=== PATIENT | female | born 1950 | race Caucasian/White ===

== ENCOUNTER → 2018-01-25 | Outpatient (CLI) | payer OTHER | END | disposition home or self-care (01) | LOC: ECHO 13:15 | DX: I08.3 Combined rheumatic disorders of mitral, aortic and tricuspid valves (principal) | CPT/HCPCS: 93306 ==

== ENCOUNTER → 2018-11-30 | Outpatient (CLI) | payer OTHER ==
--- NOTE | 2018-11-30 15:53 | CARD ---
MR#: [id number] Date of Study: 11/30/2018 Ordering Physician: THOMAS TAYLOR, Referring Physician: THOMAS TAYLOR, Tech: Rosalia Tompkins JAMIL APPROVED REPORT EXAM: Two-dimensional and M-mode echocardiogram with Doppler and color Doppler. Other Information Quality : Good INDICATION Aortic Valve Disease 2D DIMENSIONS Left Atrium(2D)3.6 (1.6-4.0cm)IVSd1.0 (0.7-1.1cm) Aortic Root(2D)2.4 (2.0-3.7cm)LVDd4.7 (3.9-5.9cm) LVOT Diameter2.0 (1.8-2.4cm)PWd0.9 (0.7-1.1cm) LVDs3.6 (2.5-4.0cm)FS (%) 24.6 % SV50.3 mlLVEF(%)55.0 (>50%) M-Mode DIMENSIONS Aortic Cusp Exc0.87 (1.5-2.0cm) Aortic Valve AoV Peak Morris.429.1cm/sAoV KKP852.2cm AO Peak GR.78.0mmHgLVOT Peak Morris.138.4cm/s LVOT VTI 33.07cmAO Mean GR.49mmHg KEIRA (VMAX)1.37wr7HIK (VTI)0.99cm2 Mitral Valve MV E Psiyucrh910.0cm/sMV DECEL STYU260cd MV A Fxeczmly269.0cm/sMV CMN92nu E/A Ratio1.3MVA (PHT)4.01cm2 TDI E/Lateral E'18.1E/Medial E'19.9 Tricuspid Valve TR P. Yjckvjxq836rh/sRAP ENTWDYUY4feNc TR Peak Gr.52hrTfOABH66poHk Pulmonary Vein S1 Rljxjjyp35.2cm/sD2 Caphnyri79.7cm/s LEFT VENTRICLE The left ventricle is normal size. There is normal left ventricular wall thickness. The left ventricu lar systolic function is normal and the ejection fraction is within normal range. The Ejection Fracti on is 55-60%. There is normal LV segmental wall motion. Transmitral Doppler flow pattern is Grade I-a bnormal relaxation pattern. RIGHT VENTRICLE The right ventricle is normal size. The right ventricular systolic function is normal. ATRIA The left atrium size is normal. The right atrium size is normal. The interatrial septum is intact wit h no evidence for an atrial septal defect or patent foramen ovale as noted on 2-D or Doppler imaging. AORTIC VALVE The aortic valve is calcified and displays decreased opening. Doppler and Color Flow revealed trace a ortic regurgitation. Calculated aortic valve area is 0.99 cm2 with maximum pressure gradient of 78 mm Hg and mean pressure gradient of 50 mmHg. Doppler and color-flow analysis revealed severe aortic sten osis. MITRAL VALVE The mitral valve is calcified but opens well. There is no evidence of mitral valve prolapse. There is no mitral valve stenosis. Doppler and Color-flow revealed trace to mild mitral regurgitation. TRICUSPID VALVE The tricuspid valve is normal in structure and function. Doppler and Color Flow revealed trace tricus pid regurgitation. There is moderate pulmonary hypertension. The PA pressure was estimated at 43 mmHg . There is no tricuspid valve stenosis. PULMONIC VALVE The pulmonic valve is not well visualized. Doppler and Color Flow revealed no pulmonic valvular regur gitation. There is no pulmonic valvular stenosis. GREAT VESSELS The aortic root is normal in size. The ascending aorta is not well seen. The IVC is normal in size an d collapses >50% with inspiration. PERICARDIAL EFFUSION There is no evidence of significant pericardial effusion. Critical Notification Critical Value: No <Conclusion> The left ventricular systolic function is normal and the ejection fraction is within normal range. Th e Ejection Fraction is 55-60%. There is normal LV segmental wall motion. Calculated aortic valve area is 0.99 cm2 with maximum pressure gradient of 78 mmHg and mean pressure gradient of 50 mmHg. Doppler and color-flow analysis revealed severe aortic stenosis. Doppler and Color Flow revealed trace tricuspid regurgitation. There is moderate pulmonary hypertensi on. The PA pressure was estimated at 43 mmHg. Signed by : Beto Anand, Electronically Approved : 11/30/2018 15:53:02
== END | disposition home or self-care (01) ==
LOC: ECHO 12:41
PROVIDERS: ATTEND Internal Medicine Cardiovascular Disease
DX: I08.0 Rheumatic disorders of both mitral and aortic valves (principal); I27.20 Pulmonary hypertension, unspecified
CPT/HCPCS: 93306